=== PATIENT | male | born 1960 | race Caucasian/White ===

== ENCOUNTER 2022-09-11 07:00 | Outpatient (NON) | payer OTHER, SELFPAY | END 2022-09-12 11:52 | disposition home or self-care (01) | PROVIDERS: Visit Provider Nurse Practitioner | DX: D36.10 Benign neoplasm of peripheral nerves and autonomic nervous system, unspecified (principal); D22.39 Melanocytic nevi of other parts of face | CPT/HCPCS: 88305 ==

== ENCOUNTER 2022-10-08 09:00 | Outpatient (NON) | payer OTHER, SELFPAY | END 2022-10-08 09:01 | disposition home or self-care (01) | LOC: ANHLAB 10-10 10:56 | PROVIDERS: Visit Provider Nurse Practitioner | DX: D22.4 Melanocytic nevi of scalp and neck (principal); D22.0 Melanocytic nevi of lip | CPT/HCPCS: 88305 ==

== ENCOUNTER 2023-04-26 15:09 | Emergency (ER) | payer OTHER, SELFPAY ==
[2023-04-26 15:17] VITALS: BP 139/73; PULSE 81; RESP 16; TEMP 36.6; O2SAT 98
--- NOTE | 2023-04-26 16:07 | ED.SKABFB ---
HPI - Skin/Abscess/Foreign Bdy General Chief complaint: Skin/Abscess/Foreign Body Stated complaint: Left Hand Bee Sting Source: patient and RN notes reviewed History of Present Illness HPI narrative: 62 yo M presents to urgent care with complaints of a bee sting to his left thumb. Pt states he was stung at [place] this morning around 10:00 am. Pt states he always has reactions like this when it comes to bee stings. Pt states this was a sweat bee that stung him this morning. Pt's left hand is swollen and slightly tender. Denies any SOB, chest pain, or vomiting. Pt has not taken anything for his symptoms. Related Data Home Medications Medication Instructions Recorded Confirmed atorvastatin 40 mg tablet 40 mg PO DAILY 04/26/23 04/26/23 finasteride 5 mg tablet 5 mg PO DAILY 04/26/23 04/26/23 lisinopril 5 mg tablet 5 mg PO DAILY 04/26/23 04/26/23 Allergies Allergy/AdvReac Type Severity Reaction Status Date / Time No Known Allergies Allergy Verified 04/26/23 15:41 Review of Systems Review of Systems: CONSTITUTIONAL: Denies fever, chills, or sweats. EYES: Denies visual changes, redness, or discharge. ENT: Denies otalgia and sore throat CARDIOVASCULAR: Denies chest pain, palpitations, or edema. RESPIRATORY: Denies cough or dyspnea. GASTROINTESTINAL: Denies abdominal pain, nausea, vomiting, or diarrhea. GENITOURINARY: Denies dysuria or hematuria. SKIN: Denies rash or itching. MUSCULOSKELETAL: Right hand swelling NEUROLOGIC: Denies headache, numbness, or weakness. Pertinent positives per HPI. PMFSH Comments At the time of my signature, I reviewed and agree with the nursing past medical, surgical, social, and family history. There is no relevant family history pertinent to the patient complaint. Exam Narrative: GENERAL: This is a well-nourished, well-developed patient, in no apparent distress. HEAD: normocephalic, atraumatic. EYES: Sclera clear/white. Vision is grossly intact. EARS: External ears normal, auditory canals clear and without drainage. Hearing grossly intact. NOSE: External nose normal with no obvious nasal discharge, nares without redness, no rhinorrhea. THROAT: Mucous membranes moist, posterior pharynx clear. NECK: Neck supple, non-tender without lymphadenopathy, masses or thyromegaly. CARDIOVASCULAR: Regular rate RESPIRATORY: No respiratory distress SKIN: warm, intact with no suspicious lesions or rash, good texture and turgor. NEURO: awake, alert, and oriented to person, place and time. There were no obvious focal neurologic abnormalities. EXTREMITIES: LEft hand edema extending to left distal FA. no sting kait noted. No rash. Cap refill < 3 sec. Course Course Level of Care: Express Care Visit Vital Signs Vital signs: Vital Signs Temperature 98 F 04/26/23 15:17 Pulse Rate 81 04/26/23 15:17 Respiratory Rate 16 04/26/23 15:17 Blood Pressure 139/73 04/26/23 15:17 Pulse Oximetry 98 04/26/23 15:17 Oxygen Delivery Room Air 04/26/23 15:17 Temperature 98 F 04/26/23 15:17 Pulse Rate 81 04/26/23 15:17 Respiratory Rate 16 04/26/23 15:17 Blood Pressure 139/73 04/26/23 15:17 Pulse Oximetry 98 04/26/23 15:17 Oxygen Delivery Room Air 04/26/23 15:17 reviewed. MDM - Skin/Abscess/Foreign Bdy MDM Narrative Medical decision making narrative: Take the steroids as directed. May take Benadryl as needed for itching. GO to the ER with any new or worsening symptoms. Differential Diagnosis Differential diagnosis: Likely cellulitis, insect bites and contact dermatitis Critical Care Time Critical Care Time Critical Care Time: No Discharge Plan Discharge Clinical Impression: Bee sting Qualifiers: Encounter type: initial encounter Injury intent: undetermined intent Qualified Code(s): T63.444A - Toxic effect of venom of bees, undetermined, initial encounter Patient Disposition: Home, Self-Care Condition: Stable Instructions: Insect Bi
== END 2023-04-26 16:12 | disposition home or self-care (01) ==
PROVIDERS: Emergency Provider Nurse Practitioner Family; PCP Family Medicine
DX: T63.444A Toxic effect of venom of bees, undetermined, initial encounter (principal); E78.00 Pure hypercholesterolemia, unspecified; I10 Essential (primary) hypertension; Z93.3 Colostomy status
CPT/HCPCS: 99213; G0463